=== PATIENT | female | born 1975 | race Caucasian/White ===

== ENCOUNTER 2024-10-14 22:40 | Inpatient (IN) | payer MEDICAID, OTHER ==
[~2024-10-14] VITALS: Ht 162.6 cm; Wt 63.5 kg
[2024-10-14] MEDS ORDERED: KETOROLAC 30MG/ML VIAL IV ONE (23:00)
[2024-10-14 23:41] LABS: BASOPHILS % 0.4 % (0.0-2.0); CHLORIDE 108 mEq/L (98-107); EOSINOPHILS % 0.9 % (0.0-5.0); HEMATOCRIT. 32.3 % (36.0-48.0); HEMOGLOBIN. 11.4 g/dL (12.0-16.0); LYMPHOCYTES % 34.5 % (20.0-50.0); MEAN CORPUSCULAR HEMOGLOBIN 33.5 pg (28.0-32.0); MEAN CORPUSCULAR HGB CONC 35.4 g/dL (31.0-37.0); MEAN CORPUSCULAR VOLUME 94.8 fL (81.0-99.0); MEAN PLATELET VOLUME 8.8 fl (7.4-10.4); MONOCYTES % 4.1 % (2.0-8.0); NEUTROPHILS % 60.1 % (40.0-76.0); PLATELET 182 x1000/uL (130-400); RED BLOOD CELL COUNT 3.41 mill/uL (4.2-5.4); RED CELL DISTRIBUTION WIDTH 12.8 % (11.6-14.6); SODIUM 138 mEq/L (136-145); WHITE BLOOD COUNT 5.8 x1000/uL (4.5-11.0)
[2024-10-14 23:42] LABS: CARBON DIOXIDE 21 mEq/L (21-32)
[2024-10-14 23:43] LABS: CALCIUM 9.9 mg/dL (8.7-10.4)
[2024-10-14 23:47] LABS: CREATININE 2.1 mg/dL (0.6-1.0); GLUCOSE 273 mg/dL (70-105)
[2024-10-14 23:48] LABS: UREA NITROGEN BLOOD 55 mg/dL (9-23)
[2024-10-14 23:49] LABS: ALANINE AMINOTRANSFERASE 22 IU/L (10-49); ALBUMIN 4.7 g/dL (3.2-4.8); ASPARTATE AMINOTRANSFERASE 17 IU/L (<34); BILIRUBIN DIRECT 0.2 mg/dL (<=3.0)
[2024-10-14 23:50] LABS: BILIRUBIN TOTAL 0.7 mg/dL (0.1-1.0); PROTEIN TOTAL 7.9 g/dL (6.0-8.3)
[2024-10-15] MEDS ORDERED: CALCIUM GLUCONATE 1,000 MG in DEXT 5% WATER 100 ML IV ONE
[2024-10-15 00:02] LABS: INR 0.9; PROTHROMBIN TIME 10.1 sec (9.6-11.0)
[2024-10-15] MEDS ORDERED: MORPHINE SULFATE 4 MG/ML INJ (FOR IV/IM USE) IV ONE (00:15)
[2024-10-15 00:20] LABS: HCG SCREEN POSITIVE
[2024-10-15 00:45] LABS: TROPONIN I HIGH SENSITIVITY < 4 ng/L (3.0-34)
[2024-10-15] MEDS ORDERED: PIPERACILLIN/TAZO 3.375G/50ML 50 ML IV STA (02:00)
[2024-10-15] MEDS: INSULIN REGULAR (HUMULIN R) 1000UNITS/10ML VIAL IV ONE (02:28)
[2024-10-15] MEDS: SODIUM BICARBONATE 8.4% 50MEQ/50ML SYR IV NR (03:28)
[2024-10-15] MEDS: MORPHINE SULFATE 4 MG/ML INJ (FOR IV/IM USE) IV NR (03:28)
[2024-10-15] MEDS: ONDANSETRON HCL 4MG/2ML INJ IV NR (03:28)
[2024-10-15] MEDS: DEXTROSE 50% WATER 50ML SYRINGE IV ONE (03:29)
[2024-10-15] MEDS: DEXTROSE 50% WATER 50ML SYRINGE IV NR (03:29)
[2024-10-15] MEDS: CALCIUM GLUCONATE 1GM PREMIX 50 ML IV NR (03:30)
[2024-10-15] MEDS: SODIUM BICARBONATE 8.4% 50MEQ/50ML SYR IV ONE (03:30)
[2024-10-15] MEDS: SODIUM CHLORIDE 0.9% 1,000 ML IV ONE (03:31)
[2024-10-15] MEDS: ONDANSETRON HCL 4MG/2ML INJ IV ONE (03:31)
[2024-10-15] MEDS: ALBUTEROL (0.083%) 2.5MG/3ML NEB HHN SCH ×2 (03:31→04:43)
[2024-10-15] MEDS: INSULIN REGULAR (HUMULIN R) 1000UNITS/10ML VIAL IV NR (03:35)
[2024-10-15 04:43] VITALS: PULSE 76; RESP 16; O2SAT 98
[2024-10-15] MEDS: PIPERACILLIN/TAZO 3.375G/50ML 50 ML IV NR (04:53)
[2024-10-15] MEDS ORDERED: ONDANSETRON HCL 4MG/2ML INJ IV PRN (05:00)
[2024-10-15] MEDS ORDERED: DEXTROSE 50% WATER 50ML SYRINGE IV PRN (14:15)
[2024-10-15 14:20] VITALS: BP 168/81; PULSE 80; RESP 20; TEMP 36.78072; TEMP 36.8072; O2SAT 100
[2024-10-15 16:00] VITALS: BP 162/79; PULSE 84; RESP 20; TEMP 36.78072; O2SAT 99
[2024-10-15 16:52] LABS: CLARITY URINE CLEAR (CLEAR); COLOR URINE YELLOW (YELLOW); GLUCOSE URINE 3+ (NEGATIVE); KETONES URINE NEGATIVE (NEGATIVE); LEUKOCYTE ESTERASE URINE 2+ (NEGATIVE); NITRITE URINE NEGATIVE (NEGATIVE); OCCULT BLOOD URINE NEGATIVE (NEGATIVE); PROTEIN URINE 1+ (NEGATIVE); SPECIFIC GRAVITY URINE 1.019 (1.005-1.030); UROBILINOGEN URINE 0.2 E.U./dL (0.2-1.0)
[2024-10-15] MEDS: BLOOD SUGAR DIAGNOSTIC STRIP TEST SCH (16:55)
[2024-10-15] MEDS: INSULIN LISPRO 100 UNITS/ML SUBCUT SCH (17:13)
[2024-10-15 17:37] LABS: BACTERIA URINE TRACE; RBC URINE 0-2 /hpf (0-2); SQUAMOUS EPITHELIAL CELL URINE FEW /lpf (RARE/1+)
[2024-10-15 20:00] VITALS: BP 160/89; PULSE 80; RESP 19; TEMP 36.22512; O2SAT 100
[2024-10-15] MEDS ORDERED: LISI20TA31 PO (20:11)
[2024-10-15] MEDS ORDERED: METF-1149 PO (20:11)
[2024-10-15] MEDS ORDERED: LISINOPRIL 20MG TABLET PO SCH (20:15)
[2024-10-15] MEDS: SODIUM ZIRCONIUM CYCLOSILICATE 10GM/PACKET PO NR (20:35)
[2024-10-15] MEDS: CLONIDINE 0.1MG TABLET PO PRN (20:36)
[2024-10-15] MEDS: HYDROCODONE/ACETAMINOPHEN 5/325MG TABLET PO PRN (20:37)
[2024-10-15] MEDS ORDERED: METFORMIN HCL 500MG TABLET PO SCH (21:00)
[2024-10-16] VITALS: BP 147/74; PULSE 99; RESP 19; TEMP 36.78072; O2SAT 99
[2024-10-16 00:15] LABS: POTASSIUM 4.4 mEq/L (3.5-5.1)
[2024-10-16 00:17] LABS: CALCIUM 9.6 mg/dL (8.7-10.4)
[2024-10-16 00:21] LABS: CREATININE 2.2 mg/dL (0.6-1.0)
[2024-10-16 04:00] VITALS: BP 155/71; PULSE 90; RESP 20; TEMP 36.50292; O2SAT 97
[2024-10-16] MEDS ORDERED: METFORMIN HCL 500MG TABLET PO SCH (07:40)
[2024-10-16 08:00] VITALS: BP 146/99; PULSE 84; RESP 18; TEMP 36.50292; O2SAT 100
[2024-10-16 09:08] LABS: POTASSIUM 5.1 mEq/L (3.5-5.1)
[2024-10-16 09:10] LABS: CALCIUM 9.6 mg/dL (8.7-10.4)
[2024-10-16 09:14] LABS: CREATININE 1.6 mg/dL (0.6-1.0)
[2024-10-16 12:00] VITALS: BP 123/81; PULSE 81; RESP 17; TEMP 36.50292; O2SAT 100
[2024-10-16 16:00] VITALS: BP 124/74; PULSE 83; RESP 18; TEMP 36.61404; O2SAT 100
[2024-10-16] MEDS ORDERED: NALOXONE HCL 0.4MG/ML VIAL IV PRN (16:30)
[2024-10-16] MEDS: INSULIN GLARGINE 100 UNITS/ML SUBCUT NR (17:20)
[2024-10-16 20:00] VITALS: BP 139/86; PULSE 82; RESP 17; TEMP 36.50292; O2SAT 99
[2024-10-16 20:17] LABS: BASOPHILS % 0.4 % (0.0-2.0); EOSINOPHILS % 0.9 % (0.0-5.0); HEMATOCRIT. 30.2 % (36.0-48.0); HEMOGLOBIN. 10.6 g/dL (12.0-16.0); MEAN CORPUSCULAR VOLUME 94.2 fL (81.0-99.0); MEAN PLATELET VOLUME 8.8 fl (7.4-10.4); NEUTROPHILS % 49.7 % (40.0-76.0); PLATELET 172 x1000/uL (130-400); RED BLOOD CELL COUNT 3.21 mill/uL (4.2-5.4); RED CELL DISTRIBUTION WIDTH 12.7 % (11.6-14.6); WHITE BLOOD COUNT 5.9 x1000/uL (4.5-11.0)
[2024-10-16 20:23] LABS: POTASSIUM 4.6 mEq/L (3.5-5.1)
[2024-10-16 20:24] LABS: CALCIUM 9.7 mg/dL (8.7-10.4)
[2024-10-16 20:29] LABS: CREATININE 1.4 mg/dL (0.6-1.0)
[2024-10-16] MEDS: AMLODIPINE 10MG TABLET PO SCH (21:07)
[2024-10-16] MEDS: INSULIN GLARGINE 100 UNITS/ML SUBCUT SCH (21:08)
[2024-10-17] VITALS: BP 108/71; PULSE 76; RESP 17; TEMP 36.114; O2SAT 99
[2024-10-17 08:00] VITALS: BP 90/54; PULSE 73; RESP 18; TEMP 36.61404; O2SAT 99
[2024-10-17 12:00] VITALS: BP 134/85; PULSE 86; RESP 18; TEMP 36.44736; O2SAT 100
[2024-10-17] MEDS ORDERED: CEFTRIAXONE 1GM/50ML 50 ML IV SCH (13:00)
[2024-10-17] MEDS ORDERED: CEPH500C2 MT (13:04)
[2024-10-17 16:00] VITALS: BP 109/73; PULSE 82; RESP 18; TEMP 37.00296; O2SAT 99
[2024-10-17 16:29] VITALS: BP 109/73; PULSE 82; TEMP 98.6; O2SAT 99
== END 2024-10-17 18:18 | disposition home or self-care (01) ==
LOC: ER 22:40 → EDBEDREQ 23:13 → 8WST 10-15 02:14 → EDBEDREQ 10-15 02:20 → EDBEDREQSVC 10-15 02:20 → EDBEDREQTM 10-15 02:20
PROVIDERS: ADMIT Internal Medicine; ATTEND Internal Medicine
DX: K80.10 Calculus of gallbladder with chronic cholecystitis without obstruction (principal); N17.0 Acute kidney failure with tubular necrosis; E11.9 Type 2 diabetes mellitus without complications; I10 Essential (primary) hypertension; Z79.899 Other long term (current) drug therapy; E87.5 Hyperkalemia; N39.0 Urinary tract infection, site not specified; Z79.84 Long term (current) use of oral hypoglycemic drugs; Z98.891 History of uterine scar from previous surgery
CPT/HCPCS: 36415; 71045; 76700; 80048; 80076; 81003; 82962; 83036; 83880; 84484; 84702; 84703; 85025; 93005; 94640; 99291; A4606; A4663; J0610; J1815; J2270; J2405; J2543; J3490; J7030; J7060